=== PATIENT | male | born 1955 | race Two or more races ===

== ENCOUNTER 2022-05-13 16:22 | Outpatient (CLI) | payer OTHER ==
[~2022-05-13 16:22] MED LIST: CIPRO500 MG PO; FLAGYL500MG PO; INTESTINEX1 CA1 PO
== END 2022-05-13 16:31 | disposition home or self-care (01) ==
LOC: LAB 16:22
PROVIDERS: ATTEND Urology
DX: R97.20 Elevated prostate specific antigen [PSA] (principal)

== ENCOUNTER 2022-06-05 07:11 | Outpatient (CLI) | payer OTHER | END 2022-06-05 07:16 | disposition home or self-care (01) | LOC: SONOGRAMA 07:11 | PROVIDERS: ATTEND Urology | DX: R97.20 Elevated prostate specific antigen [PSA] (principal) ==

== ENCOUNTER 2023-05-25 11:39 | Emergency (ER) | payer OTHER ==
[~2023-05-25] VITALS: Ht 175.3 cm; Wt 83.9 kg
[2023-05-25] MEDS ORDERED: EZALLOR SPRINKLE5 MG PO (12:15)
== END 2023-05-25 18:54 | disposition home or self-care (01) ==
LOC: ER 11:39
PROVIDERS: Emergency Medicine
DX: K57.92 Diverticulitis of intestine, part unspecified, without perforation or abscess without bleeding (principal)
CPT/HCPCS: 36415; 96365; 99284; J3490